=== PATIENT | female | born 1995 | race Caucasian/White ===

== ENCOUNTER 2017-12-14 22:33 | Emergency (ER) | payer SELFPAY, OTHER ==
[2017-12-15] MEDS: methylPREDNISolone INJ 125 MG/2 ML VIAL (J2930) IM (03:38)
== END 2017-12-15 03:57 | disposition home or self-care (01) ==
LOC: M ED 22:33
DX: J20.9 Acute bronchitis, unspecified (principal); J45.909 Unspecified asthma, uncomplicated; E03.9 Hypothyroidism, unspecified; Z79.3 Long term (current) use of hormonal contraceptives; Z79.899 Other long term (current) drug therapy
CPT/HCPCS: J2930

== ENCOUNTER 2018-12-08 09:35 | Emergency (ER) | payer OTHER, SELFPAY ==
[~2018-12-08] VITALS: Ht 162.6 cm; Wt 100.0 kg
[~2018-12-08 09:35] MED LIST: ALBU17IN2 INH; LEVO75TA4 PO; PRED20TA PO; oral birth control PO
[2018-12-08] MEDS ORDERED: NAPR-837 PO (10:27)
[2018-12-08] MEDS ORDERED: CYCL10TA PO (10:27)
[2018-12-08 10:54] VITALS: BP 119/63
== END 2018-12-08 11:00 | disposition home or self-care (01) ==
LOC: M ED 09:35
DX: M62.830 Muscle spasm of back (principal); J45.909 Unspecified asthma, uncomplicated; E03.9 Hypothyroidism, unspecified; Z79.890 Hormone replacement therapy; Z79.3 Long term (current) use of hormonal contraceptives